=== PATIENT | female | born 1995 | race Caucasian/White ===

== ENCOUNTER 2023-10-12 15:51 | Outpatient (AMB) | payer BC, SELFPAY ==
--- NOTE | 2023-10-12 15:56 | A.OFFPC_ITS ---
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 Accompanied by: Self / Same As Patient Allergies No Known Allergies Allergy (Verified 10/12/23 16:20) Medication List - Last Reconciled 10/12/23 by Payton Rae MD tretinoin 0.05% 1 appl topical BEDTIME Tobacco use date assessed: 10/12/23 Dental Screening Dental Screen Date: 10/12/23 Did you have a dental visit in the last 12 months?: Yes Did you have a dental problem in the last 6 months where you did not have access to dental care?: No Was dental information given to patient?: Patient has dentist HPI HPI Comments History of Present Illness Details This is 28-year-old female that comes for her physical exam. Had Pap smear in 2023 at [facility] and he was negative. IUD was placed. Last labs were discussed and were within normal limits. No chest pain or shortness of breath. No acute complaints. [facility] Medical History (Updated 09/02/23 @ 19:05 by Payton Rae MD) Pure hypercholesterolemia B12 deficiency Physical exam Surgical History No pertinent past surgical history Family History Mother No problems noted. Father No problems noted. Social History Housing: Apartment Alcohol intake: current Alcohol intake frequency: holidays/special occasions only Alcohol type: beer Patient Tobacco Use Status: Never used Tobacco e-Cigarette/Vaping Use: Never Used Second Hand Smoke Exposure: No service: No Current occupational status: employed Current occupational exposures/hazards: No Cognitive needs: No Hearing needs: No Vision needs: No Questionnaire PHQ-9 Over the last 2 weeks, how often have you been bothered by any of the following problems? 1. Little interest or pleasure in doing things: not at all 2. Feeling down, depressed, or hopeless: not at all 3. Trouble falling or staying asleep, or sleeping too much: not at all 4. Feeling tired or having little energy: not at all 5. Poor appetite or overeating: not at all 6. Feeling bad about yourself - or that you are a failure or have let yourself or your family down: not at all 7. Trouble concentrating on things, such as reading the newspaper or watching television: not at all 8. Moving or speaking so slowly that other people could have noticed. Or the opposite - being so fidgety or restless that you have been moving around a lot more than usual: not at all 9. Thoughts that you would be better off or of hurting yourself in some way: not at all Total score: 0 Depression Screening Interpretation: Negative Depression Screening Done: Yes 90996 - PHQ-9 Billing: Yes Source: Developed by Drs. Rickey Gomez, Deila Mendiola, Jason Whitten and colleagues, with an educational elvis from [employer]. Thrive Questionnaire Date Thrive assessed: 10/12/23 I am a: Patient What is your living situation today?: I have a steady place to live Within the past 12 months, did the food you bought not last and you didn't have the money to get more?: Never true Within the past 12 months, did you worry whether your food would run out before you got money to buy more?: Never true Do you have trouble paying for medicines?: No Do you have trouble getting transportation to medical appointments?: No Do you have trouble paying your heating and electricity bill?: No Do you have trouble taking care of your child, family member or friend?: No Do you have trouble with day-to-day activities such as bathing, preparing meals, shopping, managing finances, etc.?: No Are you currently unemployed and looking for a job?: No Are you interested in more education?: No Please select the resources that you would like help with: None Currently or been in a relationship where the following occur: no concerns reported THRIVE Score: 0 AUDIT C Alcohol Use Questionnaire (AUDIT-C) 1. How often do you have a drink containing alcohol?: Monthly or less 2. How many drinks containing alcohol do you have on a typical day when you are drinking?: 1 or 2 3. How often do you have six or more drinks on one occasion?: Never Total Score: 1 STELLA-7 AMB Questionnaire STELLA-7 Date STELLA - 7 assessed: 10/12/23 Feeling nervous, anxious, or on edge: 0 = Not at all Not being able to stop or control worryin = Not at all Worrying too much about different things: 0 = Not at all Trouble relaxin = Not at all Being so restless that it is hard to sit still: 0 = Not at all Becoming easily annoyed or irritable: 0 = Not at all Feeling afraid as if something awful might happen: 0 = Not at all Total STELLA-7 score (0-4 normal; 5-9 mild; 10-14 moderate; 15-21 severe): 0 Source: Developed by Drs. Rickey Gomez, Delia Mendiola, Jason Whitten and colleagues, with an educational elvis from [employer]. STELLA-7 Assessment Billing STELLA-7 Assessment Tool: STELLA-7 Assessment 71645 Review of Systems Const All systems reviewed & are unremarkable except as noted in HPI and below Eyes Reports no additional complaints, Denies change in vision and Denies other visual disturbances Card Denies chest pain at rest, Denies chest pain with activity, Denies edema, Denies irregular heart rhythm, Denies claudication, Denies dyspnea, Denies dyspnea on exertion, Denies orthopnea, Denies paroxysmal nocturnal dyspnea and Denies slow heart rate Resp Denies cough, Denies dyspnea and Denies dyspnea on exertion GI Denies abdominal pain, Denies change in bowel habits, Denies excessive flatus, Denies nausea and Denies vomiting Denies urinary incontinence, Denies urinary hesitancy and Denies urinary urgency Physical exam (Primary Care) Vital Signs: Last Vital Signs BP 120/70 10/12/23 16:00 BMI result Body Mass Index 21.5 Tobacco/Smoking Status: Tobacco use Status Tobacco use date assessed 10/12/23 10/12/23 16:00 Patient Tobacco Use Status Never used Tobacco 10/12/23 16:00 e-Cigarette/Vaping Use Never Used 10/12/23 16:00 PHQ-9: PHQ-9 Score PHQ-9: Total score 0 10/12/23 16:00 Depression Screening Interpretation: Negative Thrive Assessment: Date of Thrive Assessment Date Thrive assessed 10/12/23 10/12/23 16:00 Currently or been in a relationship where the following occur: no concerns reported Const Orientation/consciousness: patient oriented x3 HENNJ Head: Yes normal to inspection, Yes normocephalic and Yes atraumatic Ears: external ears normal Eyes General: appearance normal, both eyes and all related structures Eyelids: Yes eyelids normal Conjunctivae: conjunctivae normal Neck Neck: Yes normal visual inspection and Yes supple Resp Effort & Inspection: normal respiratory effort Auscultation: clear to auscultation bilaterally Cardio Jugular venous distension: no JVD Rate: regular rate Rhythm: regular rhythm Heart sounds: S1 normal heart sound present and S2 normal heart sound present GI Inspection: Yes normal to inspection Palpation (GI): Soft to palpation and nontender Auscultation: normal bowel sounds Skin General skin exam: no rashes or lesions noted Neuro General: patient oriented x3 and no focal motor deficits Extrem General: Yes full ROM Psych Appearance: grossly normal Assessment and Plan Assessment & Plan (1) Physical exam: Code(s): Z00.00 - Encounter for general adult medical examination without abnormal findings Plan: Repeat in a year. Coding Level of Care Code Est Pt Prev Care 18-39y(52163) Diagnoses Physical exam Z00.00 Additional Codes STELLA-7 Assessment Billing - STELLA-7 Assessment Tool: STELLA-7 Assessment 72661 ([id number]) Time Spent (min) 30
[2023-10-12 16:00] VITALS: BP 120/70; BMI 21.5
== END 2023-10-12 16:30 | disposition home or self-care (01) ==
PROVIDERS: Visit Provider Internal Medicine
DX: Z00.00 Encounter for general adult medical examination without abnormal findings (principal)
CPT/HCPCS: 99395

== ENCOUNTER 2024-10-18 15:51 | Outpatient (AMB) | payer BC, SELFPAY ==
--- NOTE | 2024-10-18 15:55 | A.OFFPC_ITS ---
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 Accompanied by: Self / Same As Patient Allergies No Known Allergies Allergy (Verified 10/18/24 16:06) Medication List - Last Reconciled 10/18/24 by Payton Rae MD No Known Home Meds Tobacco use date assessed: 10/18/24 Dental Screening Dental Screen Date: 10/18/24 Did you have a dental visit in the last 12 months?: Yes Did you have a dental problem in the last 6 months where you did not have access to dental care?: No Was dental information given to patient?: Patient has dentist HPI HPI Comments History of Present Illness Details The patient is a 29-year-old female presenting for a wellness examination. She has a history of undergoing a Pap smear in 2023 at [facility], with no abnormalities mentioned. Her last Tdap vaccination was administered in 2019, with the next scheduled for 2029. Past laboratory evaluations taken two years ago returned desirable results, demonstrating normal levels in cholesterol and glucose tests, confirming no presence of dyslipidemia or hyperglycemia. She expressed concerns about excessive cerumen, noting there is a tendency for earwax to build up even after she attempts to clean her ears with Q-tips, which seems to merely compact the wax further into her ear canal. This was compounded by a detailed ear examination where it was observed there was significant wax buildup in the right ear compared to the left ear. Furthermore, she reports stable well-being with no recent change in her physiological status such as weight stability, and she has not faced any episodes of chest pains or breathing difficulties. - Previous Pap smear conducted last year (2023) at [facility]. - Last Tdap vaccination was in 2019. Nex t booster scheduled for 2029. - Excellent lab values noted from two ye ars ago with normal cholesterol and glucose. [facility] Medical History Pure hypercholesterolemia B12 deficiency Physical exam Surgical History No pertinent past surgical history Family History (Updated 10/18/24 @ 16:11 by Payton Rae MD) Mother No problems noted. Father Essential hypertension Social History Housing: Apartment Alcohol intake: current Alcohol intake frequency: holidays/special occasions only Alcohol type: beer Patient Tobacco Use Status: Never used Tobacco e-Cigarette/Vaping Use: Never Used Second Hand Smoke Exposure: No service: No Current occupational status: employed Current occupational exposures/hazards: No Cognitive needs: No Hearing needs: No Vision needs: No Questionnaire PHQ-9 Over the last 2 weeks, how often have you been bothered by any of the following problems? 1. Little interest or pleasure in doing things: not at all 2. Feeling down, depressed, or hopeless: not at all 3. Trouble falling or staying asleep, or sleeping too much: not at all 4. Feeling tired or having little energy: not at all 5. Poor appetite or overeating: not at all 6. Feeling bad about yourself - or that you are a failure or have let yourself or your family down: not at all 7. Trouble concentrating on things, such as reading the newspaper or watching television: not at all 8. Moving or speaking so slowly that other people could have noticed. Or the opposite - being so fidgety or restless that you have been moving around a lot more than usual: not at all 9. Thoughts that you would be better off or of hurting yourself in some way: not at all Total score: 0 Depression Screening Interpretation: Negative Depression Screening Done: Yes 06056 - PHQ-9 Billing: Yes Source: Developed by Drs. Rickey Gomez, Delia Mendiola, Jason Whitten and colleagues, with an educational elvis from [employer]. Thrive Questionnaire Date Thrive assessed: 10/18/24 I am a: Patient What is your living situation today?: I have a steady place to live Within the past 12 months, did the food you bought not last and you didn't have the money to get more?: Never true Within the past 12 months, did you worry whether your food would run out before you got money to buy more?: Never true Do you have trouble paying for medicines?: No Do you have trouble getting transportation to medical appointments?: No Do you have trouble paying your heating and electricity bill?: No Do you have trouble taking care of your child, family member or friend?: No Do you have trouble with day-to-day activities such as bathing, preparing meals, shopping, managing finances, etc.?: No Are you currently unemployed and looking for a job?: No Are you interested in more education?: No Please select the resources that you would like help with: None Currently or been in a relationship where the following occur: No concerns reported THRIVE Score: 0 AUDIT C Alcohol Use Questionnaire (AUDIT-C) 1. How often do you have a drink containing alcohol?: 2-4 times a month 2. How many drinks containing alcohol do you have on a typical day when you are drinking?: 1 or 2 3. How often do you have six or more drinks on one occasion?: Never Total Score: 2 Score Reviewed/Action Taken: No STELLA-7 AMB Questionnaire STELLA-7 Date STELLA - 7 assessed: 10/18/24 Feeling nervous, anxious, or on edge: 0 = Not at all Not being able to stop or control worryin = Not at all Worrying too much about different things: 0 = Not at all Trouble relaxin = Not at all Being so restless that it is hard to sit still: 0 = Not at all Becoming easily annoyed or irritable: 0 = Not at all Feeling afraid as if something awful might happen: 0 = Not at all Total STELLA-7 score (0-4 normal; 5-9 mild; 10-14 moderate; 15-21 severe): 0 Source: Developed by Drs. Rickey Gomez, Delia Mendioal, Jason Whitten and colleagues, with an educational elvis from [employer]. STELLA-7 Assessment Billing STELLA-7 Assessment Tool: STELLA-7 Assessment 44058 Review of Systems Const All systems reviewed & are unremarkable except as noted in HPI and below Card Denies chest pain at rest, Denies chest pain with activity, Denies edema, Denies irregular heart rhythm, Denies claudication, Denies dyspnea, Denies dyspnea on exertion, Denies orthopnea, Denies paroxysmal nocturnal dyspnea and Denies slow heart rate Resp Denies cough, Denies dyspnea and Denies dyspnea on exertion GI Denies abdominal pain, Denies change in bowel habits, Denies excessive flatus, Denies nausea and Denies vomiting Denies urinary incontinence, Denies urinary hesitancy and Denies urinary urgency Musc Denies abnormal gait, Denies atrophy, Denies deformity and Denies limited range of motion Skin/Breast Denies bleeding lesions, Denies changing lesions and Denies rash Neuro Denies abnormal gait, Denies behavioral changes, Denies confusion and Denies lack of coordination Psych Denies behavioral changes and Denies confusion Endo Denies cold intolerance Physical exam (Primary Care) Vital Signs: Last Vital Signs BP 112/78 10/18/24 15:56 BMI result Body Mass Index 21.5 Tobacco/Smoking Status: Tobacco use Status Tobacco use date assessed 10/18/24 10/18/24 16:01 Patient Tobacco Use Status Never used Tobacco 10/18/24 16:01 e-Cigarette/Vaping Use Never Used 10/18/24 16:01 PHQ-9: PHQ-9 Score PHQ-9: Total score 0 10/18/24 16:01 Depression Screening Interpretation: Negative Thrive Assessment: Date of Thrive Assessment Date Thrive assessed 10/18/24 10/18/24 16:01 Currently or been in a relationship where the following occur: No concerns reported Const General: No confusion Orientation/consciousness: patient oriented x3 and No confusion HENMT Head: Yes normal to inspection, Yes normocephalic and Yes atraumatic Ears: external ears normal Eyes General: appearance normal, both eyes and all related structures Eyelids: Yes eyelids normal Conjunctivae: conjunctivae normal Neck Neck: Yes normal visual inspection and Yes supple Resp Effort & Inspection: normal respiratory effort Auscultation: clear to auscultation bilaterally Cardio Jugular venous distension: no JVD Rate: regular rate Rhythm: regular rhythm Heart sounds: S1 normal heart sound present and S2 normal heart sound present GI Inspection: Yes normal to inspection Palpation (GI): Soft to palpation and nontender Auscultation: normal bowel sounds Skin General skin exam: no rashes or lesions noted Neuro General: patient oriented x3, no focal motor deficits and No confusion Extrem General: Yes full ROM Psych Appearance: grossly normal Coding Level of Care Code Est Pt Prev Care 18-39y(10611) Diagnoses Physical exam Z00.00 Additional Codes PHQ-9 - 41004 - PHQ-9 Billing: Yes ([id number]) STELLA-7 Assessment Billing - STELLA-7 Assessment Tool: STELLA-7 Assessment 95555 ([id number]) Time Spent (min) 30 Assessment & Plan Assessment & Plan (1) Physical exam: Code(s): Z00.00 - Encounter for general adult medical examination without abnormal findings Category: Medical Plan Murine earwax removal drops were recommended to address cerumen impaction, with instructions for use provided. Her ear health and cleaning habits will continue to be monitored, ensuring minimized risk of obstruction without reliance on cotton swabs. No additional labs or diagnostic testing will be conducted at this time, given the stability and normalcy of previous findings, unless she experiences changes in health status warranting further investigation. Patient was informed and verbally consented to the use of an ambient scribe for clinic note documentation during this visit. I discussed the management of her earwax buildup, recommending the use of Murine earwax removal solution to soften wax for easier removal. Advised use only routinely and cautioned against frequent use of Q-tips that may push the wax further in. Emphasized monitoring future cerumen accumulation and its methods, setting expectations for potential limitations without mechanical assistance.
[2024-10-18 15:56] VITALS: BP 112/78; BMI 21.5
--- OUTSIDE RECORDS SUMMARY | 2024-10-18 18:35 | XMS_ITS | Clinical Summary ---
Author Organization [facility] Address [address] [place] [address] Care Team Providers Care Building Dismantler Name Role Phone Unknown Primary Care Provider [phone] Allergies No known active allergies Medications Lo Loestrin Fe 1 MG-10 MCG / 10 MCG tablet 05/31/2020 Active Social History Tobacco Use Types Packs/Day Years Used Date Smoking Tobacco: Never Smokeless Tobacco: Never Comments Unknown Sex and Gender Information Value Date Recorded Sex Assigned at Not on file Legal Sex Female 4:50 PM EST Gender Identity Not on file Sexual Orientation Not on file Last Filed Vital Signs Vital Sign Reading Time Taken Comments Blood Pressure 122/82 08/26/2020 10:31 AM EST Pulse 88 08/30/2020 4:43 PM EST Temperature 36.7 ??C (98 ??F) 08/30/2020 4:43 PM EST Respiratory Rate - - Oxygen Saturation 96% 08/30/2020 4:43 PM EST Inhaled Oxygen Concentration - - Weight 59 kg (130 lb) 08/30/2020 4:43 PM EST Height 170.2 cm (5' 7 ) 08/30/2020 4:43 PM EST Body Mass Index 20.36 08/30/2020 4:43 PM EST Plan of Treatment Health Maintenance Due Date Last Done Comments Hepatitis C Virus Screening 1997 HIV Screening 2010 DTaP/Tdap/Td Vaccines (1 - Tdap) 2016 Hepatitis B Vaccines (1 of 3 - 19+ 3-dose series) 2016 Pap Smear (Ages 21-65) 2018 Influenza Vaccine 01/28/2024 05/09/2020 COVID-19 Vaccine ( - 2023-2 5 season) 2024 HPV Vaccines Aged Out No longer eligi ble based on patient's age to complete this topic Pneumococcal Vaccine: Pediat jenny (0-5 Years) and At-Risk Patients (6 to 49 Years) Aged Out No longer eligible b ased on patient's age to complete this topic Insurance [facility] [email or web address] [facility] Care Teams Building Dismantler Relationship Specialty Start Date End Date Unknown Unknow Provider Address PCP - General 07/31/20
--- OUTSIDE RECORDS SUMMARY | 2024-10-18 18:35 | XMS_ITS | Clinical Summary ---
Author Organization [facility] [address] [facility] Address [address] [place] [address] Phone Care Team Providers Care Pipe Fitter Marine Name Role Phone Payton Rae MD Primary Care Provider [phone] Allergies Active Allergy Reactions Criticality Noted Date Comments Other 09/09/2023 seasonal Medications fluconazole (DIFLUCAN) 150 mg tablet TAKE 1 TABLET BY MOUTH ONCE IF SYMPTOMS PERSIST MAY TAKE 2ND DOSE AFTER 3 DAYS 4 025 Discontinued benzoyl peroxide (BENZAC AC) 10 % external wash USE A BODY WASH DAILY. 4 025 Discontinued azelaic acid (FINACEA) 15 % gel APPLY TO THE FACE ONCE DAILY 4 025 Discontinued norethindrone- e.estradioL-ir on (Lo Loestrin Fe) 1 mg-10 mcg (24)/10 mcg (2) per tablet 0 025 Discontinued oxyCODONE (ROXICODONE) 5 mg immediate release tablet TAKE 1 TABLET BY MOUTH 3 TIMES A DAY, FOR 3 DAYS NEEDED FOR PAIN 4 025 Discontinued Active Problems No known active problems Encounters Date Type Department Care Team Description 09/26/2024 8:45 AM EDT Office Visit Obstetrics and Gynecology - [place] [address] [place] [phone] Wiley Devine CNM Encounter for annual routine gynecological examination (Primary Dx); Screen for STD (sexually transmitted disease) from Last 3 Months Surgical History Surgery Date Site/Laterality Comments NO PAST SURGERIES Medical History Medical History Date Comments Patient denies medical problems Social History Tobacco Use Types Packs/Day Years Used Date Smoking Tobacco: Never Smokeless Tobacco: Never Tobacco Cessation:Counseling Given: Not Answered Alcohol Use Standard Drinks/Week Comments Yes 2 (1 standard drink = 0.6 oz pur e alcohol) Housing Instability Answer Date Recorde d Are you worried that in the next 2 months you may not have stable housing? No 06/07/2024 Food Access & Nutrition Answer Date Rec orded Do you have access to a vari ety of food including fruits and vegetables? Yes 06/07/2024 Health Literacy Answer Date Recorded How often do you need to hav e someone help you when you read instructions, pamphlets, or other written material from your doctor or pharmacy? Never 06/07/2024 Caregiver: How often do you need to have someone help you when you read instructions, pamphlets, or other written material from your doctor or pharmacy? Not on file 06/07/2024 Financial Risk Answer Date Recorded How hard is it for you to pa y for the very basics like food, housing, medical care, and air conditioning / heating? Not very hard 06/07/2024 Transportation Answer Date Recorded Has the lack of transportati on kept you from meetings, work, or from getting things needed for daily living? No Has the lack of transportati on kept you from medical appointments or from getting medications? No 06/07/2024 Social Isolation Answer Date Recorded How often do you feel lonely or isolated from th ose around you? Never 06/07/2024 Food Risk Answer Date Recorded Within the past 12 months we worried whether our food would run out before we got money to buy more. Never true 06/07/2024 Within the past 12 months th e food we bought just didn't last and we didn't have money to get more. Never true 06/07/2024 Dependent Care Answer Date Recorded Do you need help finding or paying for care for your loved ones. For example, child support investigator or elderly care for an older adult? No 06/07/2024 Education Answer Date Recorded Do you think completing more education or training, like finishing a GED, going to college, or learning a trade, would be helpful for you? No 06/07/2024 Employment and Income Answer Date Recor ded During the last four weeks, have you been actively looking for work? No 06/07/2024 Living Situation Answer Date Recorded What is your living situation? 1 08/08/2023 Comments No Sex and Gender Information Value Date Recorded Sex Assigned at Not on file Legal Sex Female 11:05 AM EDT Gender Identity Not on file Sexual Orientation Not on file Obstetrics History Para Term AB IAB SAB Ectopic Multiple Livin g Live Births 0 0 0 0 0 0 0 0 0 0 0 Last Filed Vital Signs Vital Sign Reading Time Taken Comments Blood Pressure 125/88 09/26/2024 8:43 AM EDT Pulse 99 09/26/2024 8:43 AM EDT Temperature - - Respiratory Rate 15 06/14/2024 1:07 PM EST Oxygen Saturation - - Inhaled Oxygen Concentration - - Weight 64.5 kg (142 lb 3.2 oz) 09/26/2024 8:43 A M EDT Height 170 cm (5' 6.93 ) 09/26/2024 8:43 AM EDT Body Mass Index 22.32 09/26/2024 8:43 AM EDT Plan of Treatment Health Maintenance Due Date Last Done Comments DTaP,Tdap,and Td Vaccines (1 - Tdap) 2016 Hepatitis B Vaccines (1 of 3 - 19+ 3-dose series) 2016 HIV Screening 01/22/2024 Hepatitis C Screening 01/22/2024 COVID-19 Vaccine (3 - 2023-2 5 season) 2024 09/29/2020, 09/08/2020 Social Influencers of Health Screening 06/07/2025 06/07/2024 Depression Screening 09/19/2025 09/19/2024 Cervical Cancer Screening: P ap Smear 09/17/2026 09/18/2023, 09/18/2023, 09/09/2023 HPV Vaccines Completed 03/23/2023, 11/21/2022, 09/18/2022 Influenza Vaccine Completed 05/02/2024, 03/23/2023, 04/07/2022 HIB Vaccines Aged Out No longer eligi ble based on patient's age to complete this topic Hepatitis A Vaccines Aged Out No long er eligible based on patient's age to complete this topic IPV Vaccines Aged Out No longer eligi ble based on patient's age to complete this topic MMR Vaccines Aged Out No longer eligi ble based on patient's age to complete this topic Meningococcal ACWY Vaccine Aged Out N o longer eligible based on patient's age to complete this topic Meningococcal B Vaccine Aged Out No l onger eligible based on patient's age to complete this topic Pneumococcal Vaccine: Pediatrics (0 to 5 Years) and At-Risk Patients (6 to 64 Years) Aged Out No longer eligible b ased on patient's age to complete this topic RSV Immunization Patients Under 20 months Aged Out No longer eligible b ased on patient's age to complete this topic Varicella Vaccines Aged Out No longer eligible based on patient's age to complete this topic Procedures Procedure Name Priority Date/Time Associated Diagnosis Comments TRICHOMONAS VAGINALIS ANTIGEN Routine 09/26/2024 9:35 AM EDT Screen for STD (sexually transmitted disease) CHLAMYDIA TRACHOMATIS AND NEISSERIA GONORRHOEAE PCR Routine 09/26/2024 9:35 AM EDT Screen for STD (sexually transmitted disease) HM HPV Routine 09/18/2023 from Last 3 Months or Most Recently Relevant to Health Maintenance Results * Trichomonas vaginalis antigen (09/26/2024 9:35 AM EDT) Trichomonas vaginalis Negative Negative 09/26/2024 6:24 PM EDT [facility] Swab Vaginal structure / Unknown Non-blood Collection / Unknown 09/26/2024 9:35 AM EDT 09/26/2024 9:35 AM EDT us Wiley Devine CNM LAB MICROBIOLOGY - GENERAL ORD ERABLES Final Result [facility] [address] [place] [address], * Chlamydia trachomatis and Neisseria gonorrhoeae molecular study (09/26/2024 9:35 AM EDT) Neisseria gonorrhoeae PCR Negative Negative LAB MOLECULAR DIAGNOSTICS METHOD 09/27/2024 9:03 AM EDT [facility] Chlamydia trachomatis PCR Negative Negative LAB MOLECULAR DIAGNOSTICS METHOD 09/27/2024 9:03 AM EDT [facility] Swab Cervix uteri structure / Unknown Non-blood Collection / Unknown 09/26/2024 9:35 AM EDT 09/26/2024 9:35 AM EDT Wiley Devine CNM LAB MICROBIOLOGY - GENERAL ORD ERABLES Final Result [facility] ([facility] [address] [place] [address], [place] [phone] * Cervical Cancer Screening: HPV (09/18/2023) Pathologist [facility] Cervical Cancer Screening: HPV no interpretation , abstracted Historical Provider HEALTH MAINTENANCE Final Result from Last 3 Months or Most Recently Relevant to Health Maintenance Insurance [facility] Care Teams Pipe Fitter Marine Relationship Specialty Start Date End Date Pyaton Rae MD [address] [place] [address] , [address] Physician Associ D/B/A: [facility] APOILNAR Cabrera PCP - General Internal Medicine 09/22/24
== END 2024-10-18 16:18 | disposition home or self-care (01) ==
LOC: HO.HMCH 15:51
PROVIDERS: PCP Internal Medicine; Visit Provider Internal Medicine
DX: Z00.00 Encounter for general adult medical examination without abnormal findings (principal)

== ENCOUNTER → 2024-10-18 15:51 | Outpatient (BNVA) | payer BC, SELFPAY | PROVIDERS: PCP Internal Medicine; Visit Provider Internal Medicine | DX: Z00.00 Encounter for general adult medical examination without abnormal findings (principal) | CPT/HCPCS: 96127 ==

== ENCOUNTER 2024-11-25 08:15 | Outpatient (REF) | payer BC, SELFPAY ==
--- OUTSIDE RECORDS SUMMARY | 2024-11-25 08:17 | XMS_ITS | Clinical Summary ---
Author Organization [facility] [address] [facility] Address [address] [place] [address] Phone Care Team Providers Care Eap Consultant Name Role Phone Payton Rae MD Primary Care Provider [phone] Allergies Active Allergy Reactions Criticality Noted Date Comments Other 09/09/2023 seasonal Medications No known medications Active Problems No known active problems Encounters Date Type Department Care Team Description 09/26/2024 8:45 AM EDT Office Visit Obstetrics and Gynecology - [place] [address] [place] [phone] Wiley Devine CNM Encounter for annual routine [...] care for your loved ones. For example, children librarian or elderly care for an older adult? [...] EDT Screen for STD (sexually transmitted disease) HPV Routine 09/18/2023 from Last 3 Months or Most Recently Relevant to Health Maintenance Results * Trichomonas vaginalis antigen (09/26/2024 9:35 AM EDT) Trichomonas vaginalis Negative Negative 09/26/2024 6:24 PM EDT [facility] Swab Vaginal structure / Unknown Non-blood Collection / Unknown 09/26/2024 9:35 AM EDT 09/26/2024 9:35 AM EDT us Wiley Devine CNM LAB MICROBIOLOGY - GENERAL ORD ERABLES Final Result Performing Organization Address City/[facility]/ZIP Co de Phone Number [facility] [address] [place] [address], [place] [phone] * Chlamydia trachomatis and Neisseria gonorrhoeae molecular study (09/26/2024 9:35 AM EDT) [facility] Neisseria gonorrhoeae PCR Negative Negative LAB MOLECULAR DIAGNOSTICS METHOD 09/27/2024 9:03 AM EDT [facility] Chlamydia trachomatis PCR Negative Negative LAB MOLECULAR DIAGNOSTICS METHOD 09/27/2024 9:03 AM EDT [facility] Swab Cervix uteri structure / Unknown Non-blood Collection / Unknown 09/26/2024 9:35 AM EDT 09/26/2024 9:35 AM EDT us Wiley Devine CNM LAB MICROBIOLOGY - GENERAL ORD ERABLES Final Result Performing Organization Address City/[facility]/ZIP Co de Phone Number [facility] [address] [place] [address], [place] [phone] * Cervical Cancer Screening: HPV (09/18/2023) Pathologist [facility] Cervical Cancer Screening: HPV no interpretation , abstracted us Historical Provider HEALTH MAINTENANCE Final Result from Last 3 Months or Most Recently Relevant to Health Maintenance Insurance [facility] Care Teams Eap Consultant Relationship Specialty Start Date End Date Payton Rae MD [address] [facility] , [address] [facility] Physician Associ D/B/A: [facility] APOLINAR Cabrera PCP - General Internal Medicine 09/22/24
[2024-11-25 11:28] LABS: MANUAL DIFF FLAG NO
[2024-11-25 11:51] LABS: Basophils Percent Auto 0.6 % (0-2); Eosinophils Absolute Auto 0.1 X10*3/uL (0.0-0.4); Hematocrit 41.3 % (37.0-47.0); Hemoglobin 13.6 g/dl (12.0-16.0); Imm Gran Abs Auto 0.01 X10*3/uL (0.00-0.03); Imm Gran Pct Auto 0.3 % (0.0-0.4); Lymphocytes Absolute Auto 1.2 X10*3/uL (1.2-4.9); Lymphocytes Percent Auto 34.6 % (20-40); Mean Corpuscular HGB Conc 32.9 g/dl (31.0-35.0); Mean Corpuscular Hemoglobin 31.5 pg (27.0-33.0); Mean Corpuscular Volume 95.6 fL (80.0-98.0); Mean Platelet Volume 10.6 fL (9.4-12.3); Monocytes Absolute Auto 0.2 X10*3/uL (0.1-1.2); Monocytes Percent Auto 6.7 % (2-11); Neutrophils Percent Auto 55.8 % (45-73); Platelet Count 174 X10*3/uL (160-400); Red Blood Count 4.32 X10*6/uL (4.20-5.50); Red Cell Distribution Width 12.5 % (11.0-16.0); White Blood Count 3.6 X10*3/uL (4.8-10.8)
[2024-11-25 12:55] LABS: Vitamin D 25-OH Total 23.6 ng/mL (>30)
[2024-11-25 12:57] LABS: Anion Gap 13 (12-20)
[2024-11-25 13:01] LABS: Alanine Aminotransferase 12 U/L (0-31); Albumin Level 4.7 g/dL (3.5-5.0); Alkaline Phosphatase 55 U/L (39-117); Aspartate Amino Transferase 18 U/L (5-31); Bilirubin Total 0.9 mg/dL (0.0-1.0); Blood Urea Nitrogen 12 mg/dL (9-16); Calcium 9.7 mg/dL (8.4-10.2); Carbon Dioxide 24 mmol/L (22-29); Chloride 109 mmol/L (96-108); Cholesterol 212 mg/dL (<200); Estimated Glomerular Filt Rate > 60; Glucose Fasting 83 mg/dL (60-99); HDL Cholesterol 83 mg/dL (>40); LDL Cholesterol Calculated 120 mg/dL (<100); Potassium 4.5 mmol/L (3.3-5.1); Sodium 141 mmol/L (135-145); Total Protein 7.3 g/dL (6.5-8.0); Triglycerides 45 mg/dL (<150)
[2024-11-25 13:05] LABS: Folate 9.2 ng/mL (> or = 4.0); Vitamin B12 339 pg/mL (200-900)
== END 2024-11-25 08:16 | disposition home or self-care (01) ==
LOC: HO.WFDLDS 08:15
PROVIDERS: Visit Provider Internal Medicine
DX: E78.00 Pure hypercholesterolemia, unspecified (principal); E78.5 Hyperlipidemia, unspecified; D64.9 Anemia, unspecified; E53.8 Deficiency of other specified B group vitamins; E55.9 Vitamin D deficiency, unspecified
CPT/HCPCS: 36415; 80053; 80061; 82306; 82607; 82746; 85025